=== PATIENT | male | born 1970 | race Caucasian/White ===

== ENCOUNTER → 2020-11-22 | Outpatient (CLI) | payer OTHER ==
[~2020-11-22] MED LIST: ASPIRIN CHEWABL81 MG PO; LIORESAL TAB 1010 MG PO; LOPRESSOR 25 MG25 MG PO; LOPRESSOR 50 MG50 MG PO; NORVASC 5 MG TAB5 MG PO; OXYGEN; PRAVASTATIN SOD40 MG PO; PROTONIX40 MG PO; SINGULAIR10 MG PO; SYNTHROID25 MCG PO
== END ==
LOC: SLEEP-COR 13:57
DX: G47.33 Obstructive sleep apnea (adult) (pediatric) (principal); G47.34 Idiopathic sleep related nonobstructive alveolar hypoventilation
CPT/HCPCS: 95810